=== PATIENT | male | born 1965 | race Two or more races ===

== ENCOUNTER 2024-08-18 17:22 | Emergency (ER) | payer OTHER ==
[~2024-08-18] VITALS: Ht 188 cm; Wt 127.0 kg
[2024-08-18 17:25] VITALS: BP_SYST 138; PULSE 81; RESP 20; TEMP 97.9; O2SAT 99
[2024-08-18 18:47] LABS: BASOPHILS # (AUTO) 0.1 K/uL (0.0-0.2); BASOPHILS % (AUTO) 0.5 % (0.0-2.0); HEMATOCRIT 48.3 % (36-54); HEMOGLOBIN 16.5 g/dL (14.0-18.0); LYMPHOCYTES # (AUTO) 0.9 K/uL (1.0-5.5); LYMPHOCYTES % (AUTO) 4.7 % (20.5-51.5); MEAN CORPUSCULAR HEMOGLOBIN 30 pg (27-31); MEAN CORPUSCULAR HGB CONC 34 % (32-36); MEAN CORPUSCULAR VOLUME 87 fL (79.0-98.0); MONOCYTES % (AUTO) 5.2 % (1.7-9.3); NEUTROPHILS # (AUTO) 16.4 K/uL (1.8-7.7); NEUTROPHILS % (AUTO) 89.6 % (40.0-70.0); PLATELET COUNT (AUTO) 274 K/uL (130-430); RED BLOOD CELL COUNT(AUTO) 5.55 MIL/uL (4.2-6.2); RED CELL DISTRIBUTION WIDTH 14.1 % (9.0-15.0); WHITE BLOOD COUNT (AUTO) 18.3 K/uL (4.8-10.8)
[2024-08-18] MEDS: KETOROLAC TROMETHAMINE 30 MG VIAL IVP ONE (18:50)
[2024-08-18] MEDS: ONDANSETRON HCL 4 MG/2 ML VIAL IVP ONE (18:50)
[2024-08-18] MEDS: NACL 0.9% 1,000 ML IV ONE (18:51)
[2024-08-18 18:55] LABS: BILIRUBIN,URINE NEGATIVE (NEGATIVE); BLOOD, URINE 3+ (NEGATIVE); CLARITY/URINE CLEAR (CLEAR); COLOR,URINE YELLOW (YELLOW); GLUCOSE,URINE NEGATIVE (NEGATIVE); KETONES,URINE NEGATIVE (NEGATIVE); LEUKOCYTE ESTERASE ,URINE NEGATIVE (NEGATIVE); NITRITE, URINE NEGATIVE (NEGATIVE); PROTEIN URINE NEGATIVE (NEGATIVE); UROBILINOGEN,URINE 0.2 (0.2-1.0)
[2024-08-18 19:02] LABS: ALBUMIN 4.1 g/dL (3.4-4.8); BILIRUBIN,DIRECT 0.2 mg/dL (0.0-0.3); CALCIUM 9.6 mg/dL (8.4-11.0); CREATININE 1.69 mg/dL (0.55-1.30); POTASSIUM 4.5 mmol/L (3.5-5.1); TOTAL BILIRUBIN 0.7 mg/dL (0.0-1.0); TOTAL PROTEIN, SERUM 7.9 g/dL (6.4-8.3)
[2024-08-18 19:20] LABS: BACTERIA,URINE None Seen /HPF (None Seen)
[2024-08-18] MEDS ORDERED: ONDA-8 TL (23:00)
[2024-08-18] MEDS ORDERED: IBUP-1969 PO (23:00)
[2024-08-18 23:18] VITALS: BP_SYST 138; PULSE 81; RESP 20; TEMP 97.9; O2SAT 99
== END 2024-08-18 23:17 | disposition home or self-care (01) ==
LOC: SED 17:22
DX: N13.2 Hydronephrosis with renal and ureteral calculous obstruction (principal); R10.32 Left lower quadrant pain; R11.0 Nausea
CPT/HCPCS: 99285; 74176; 96374; 96361; 96375; 80076; 80048; 81001; 83690; 85025; 87040; 36415; J1885; J2405; J7030; 81000; 81015